=== PATIENT | female | born 1990 | race African-American/Black ===

== ENCOUNTER 2018-01-07 22:14 | Emergency (ER) | payer MEDICAID ==
--- NOTE | 2018-01-07 23:59 | EDM.PDOC ---
ED HPI GENERAL MEDICAL PROBLEM - General Chief Complaint: General Stated Complaint: ILLNESS Time Seen by Provider: 01/07/18 23:45 Source of Information: Reports: Patient, Old Records, RN History Limitations: Reports: No Limitations - History of Present Illness INITIAL COMMENTS - FREE TEXT/NARRATIVE: 27 yo female presents with progressive dizziness with standing over a couple weeks that seems to be getting worse. No bleeding or diarrhea or vomiting or fever. Had some abnormal vaginal spotting recently. Has dysuria for a few days with voiding. No vertigo. Has not been to the clinic for these sx's. Onset: Gradual Onset Date: 12/24/17 Duration: Week(s): (2), Getting Worse Location: Reports: Head (feels light-headed.) Quality: Reports: Burning (with urination, no other pain) Severity: Mild Improves with: Reports: Other (dizziness better with sitting or lying) Worsens with: Reports: Other (standing) Context: Reports: Other (unknown) Associated Symptoms: Reports: No Other Symptoms Treatments [employer]: Reports: Other (see below) (none) Lower Abdomen Pain Score (Numeric/FACES): 5 Headache Pain Score (Numeric/FACES): 5 - Related Data Allergies Allergy/AdvReac Type Severity Reaction Status Date / Time No Known Allergies Allergy Verified 01/07/18 23:34 Home Meds: Home Meds NK [No Known Home Meds] 01/07/18 [History] Past Medical History - Past Health History Medical/Surgical History: Denies Medical/Surgical History Social & Family History - Tobacco Use Smoking Status *Q: Current Every Day Smoker Years of Tobacco use: 7 Packs/Tins Daily: 0.5 - Caffeine Use Caffeine Use: Reports: Soda - Recreational Drug Use Recreational Drug Use: No ED ROS GENERAL - Review of Systems Review Of Systems: See Below Constitutional: Reports: No Symptoms HEENT: Reports: No Symptoms Respiratory: Reports: No Symptoms Cardiovascular: Reports: Lightheadedness Endocrine: Reports: No Symptoms GI/Abdominal: Reports: No Symptoms : Reports: Dysuria, Other (vaginal spotting) Musculoskeletal: Reports: No Symptoms Skin: Reports: No Symptoms Neurological: Reports: No Symptoms Psychiatric: Reports: No Symptoms ED EXAM, GENERAL - Physical Exam Exam: See Below Exam Limited By: No Limitations General Appearance: Alert, WD/WN, No Apparent Distress Eye Exam: Bilateral Eye: Normal Inspection, PERRL Ears: Normal External Exam, Normal Canal, Hearing Grossly Normal, Normal TMs Ear Exam: Bilateral Ear: Auricle Normal, Canal Normal, TM normal Nose: Normal Inspection, Normal Mucosa, No Blood Throat/Mouth: Normal Inspection, Normal Lips, Normal Oropharynx, Normal Voice, No Airway Compromise Head: Atraumatic, Normocephalic Neck: Normal Inspection, Supple Respiratory/Chest: No Respiratory Distress, Lungs Clear, Normal Breath Sounds, No Accessory Muscle Use Cardiovascular: Regular Rate, Rhythm, No Edema GI/Abdominal: Normal Bowel Sounds, Soft, Non-Tender, No Distention Back Exam: Normal Inspection. No: CVA Tenderness (R), CVA Tenderness (L) Extremities: Normal Inspection, Normal Range of Motion, Non-Tender, No Pedal Edema Neurological: Alert, Oriented, CN II-XII Intact, Normal Cognition, No Motor/ Sensory Deficits Psychiatric: Normal Affect, Normal Mood Skin Exam: Warm, Dry, Intact, Normal Color, No Rash Lymphatic: No Adenopathy Course - Vital Signs Last Recorded V/S: Last Vital Signs Temp 36.4 C 01/07/18 23:34 Pulse 64 01/07/18 23:34 Resp 14 01/07/18 23:34 BP 139/64 01/07/18 23:34 Pulse Ox 100 01/07/18 23:34 Orthostatic Blood Pressure [ 123/75 Standing] Orthostatic Blood Pressure [ 131/75 Sitting] Orthostatic Blood Pressure [ 123/79 Supine] - Orders/Labs/Meds Orders: Active Orders 24 hr Category Date Time Status Orthostatic Vital Signs [RC] ASDIRECTED Care 01/07/18 23:50 Active HCG QUALITATIVE,URINE [URCHEM] Stat Lab 01/08/18 00:04 Ordered UA W/MICROSCOPIC [URIN] Stat Lab 01/08/18 00:04 Ordered Labs: Laboratory Tests 01/08/18 01/08/18 Range/Units 00:04 00:04 Urine Color Yellow Urine Appearance Slightly cloudy Urine pH 5.0 (4.5-8.0) Ur Specific [place] 1.020 (1.008-1.030) Urine Protein Trace (NEGATIVE) mg/dL Urine Glucose (UA) Normal (NEGATIVE) mg/dL Urine Ketones Negative (NEGATIVE) mg/dL Urine Occult Blood Negative (NEGATIVE) Urine Nitrite Negative (NEGATIVE) Urine Bilirubin Small (NEGATIVE) Urine Urobilinogen 1 (NORMAL) mg/dL Ur Leukocyte Esterase Negative (NEGATIVE) Urine RBC 0-5 (0-5) Urine WBC 0-5 (0-5) Ur Epithelial Cells Few Amorphous Sediment Not seen Urine Bacteria Not seen Urine Mucus Many Urine HCG, Qual Negative Departure - Departure Time of Disposition: 00:30 Disposition: Home, Self-Care 01 Condition: Good Clinical Impression: Orthostatic hypotension - Discharge Information *PRESCRIPTION DRUG MONITORING PROGRAM REVIEWED*: Not Applicable *COPY OF PRESCRIPTION DRUG MONITORING REPORT IN PATIENT ZURDO: Not Applicable Instructions: Orthostatic Hypotension Referrals: PCP,None [Primary Care Provider] - Forms: ED Department Discharge Additional Instructions: Drink more water than you have been. Drink enough so your urine is light yellow in color. Get established with a family doctor of your choice OR see your OB doctor for ER follow up. - My Orders Last 24 Hours: My Active Orders 01/07/18 23:50 Orthostatic Vital Signs [RC] ASDIRECTED 01/08/18 00:04 HCG QUALITATIVE,URINE [URCHEM] Stat UA W/MICROSCOPIC [URIN] Stat - Assessment/Plan Last 24 Hours: My Active Orders 01/07/18 23:50 Orthostatic Vital Signs [RC] ASDIRECTED 01/08/18 00:04 HCG QUALITATIVE,URINE [URCHEM] Stat UA W/MICROSCOPIC [URIN] Stat
== END 2018-01-08 00:49 | disposition home or self-care (01) ==
LOC: JP.ED 22:14
DX: I95.1 Orthostatic hypotension (principal); F17.210 Nicotine dependence, cigarettes, uncomplicated
CPT/HCPCS: 81001; 81025; 99284